=== PATIENT | male | born 1970 | race Caucasian/White ===

== ENCOUNTER 2017-01-16 00:44 | Emergency (ER) | payer OTHER ==
[~2017-01-16] VITALS: Ht 182.9 cm; Wt 90.9 kg
[2017-01-16 00:54] VITALS: BP 144/97; PULSE 103; RESP 18; O2SAT 99
--- NOTE | 2017-01-16 00:59 | ED.REPORT ---
HPI-Extremity Problem Lower Date of Service Jan 16, 2017 ED Provider: Dr. Min Wharton MD A 46 year old male with no pertinent medical history present to the ED with right leg swelling and pain that became increasingly worse this morning. The patient reportedly had a GLF onto a bed of rocks 2 weeks ago that resulted in a small laceration to the right anterior guy. Since the fall, the right leg has become increasingly red, swollen and painful. Recent associated symptoms also include a subjective fever and chills. Patient admits to self-medicated with 1500mg of amoxicillin this afternoon. He denies history of MRSA. Nursing Notes Stated Complaint: POSS BLOOD CLOT R LEG Chief Complaint: Extremity Trauma Nursing Notes Reviewed: Yes Allergies: Coded Allergies: No Known Allergies (Unverified , 01/16/17) Scheduled Cephalexin (Keflex) 500 Mg Capsule 500 MG PO QID General Time Seen by MD: 00:58 Chief Complaint Leg injury right Hx Obtained From: Patient Arrived By: Walk-in Onset Occurred: 9 - 12 hours ago Symptom Duration: Since onset Caused by: Accidental, Fall on ground Location: : Leg right Quality: Painful Severity: Current: Moderate Severity: Maximum: Moderate Associated with: Reports: Fever (subjective), Swelling Pertinent Negative: Pt denies other symptoms Recent Healthcare: No recent doctor visit, No recent hospitalization Past Medical History Past Medical History None reported. Past Surgical History None reported. Smoking History Unknown if Ever Smoker Social History Other Social History: Good social support, Local resident Ambulatory Status Independent Review of Systems + right leg erythema Constitutional: Reports: Chills, Fever (subjective) Musculoskeletal: Reports: Extremity pain (R leg), Extremity swelling (R leg) Complete sys rev & neg: except as marked. Physical Exam Initial Vital Signs Vital Signs (First) Date Time Temp Pulse Resp B/P Pulse Ox O2 Delivery O2 Flow Rate FiO2 01/16/17 00:54 37.3 103 18 144/97 99 Room Air Initial VS: Reviewed Head / Eyes: Atraumatic, Normocephalic, PERRL Neck: Supple, Non-tender, Full range of motion Upper Extremities: Vascular intact, Neuro intact, No swelling, No tenderness Neurologic: Alert, Oriented, Nonfocal Psychiatric: Mood/affect normal, Behavior normal, Normal thought content Lower Extremity / Pelvis / MS: Atraumatic, Neurologic intact, Vascular intact Right Leg / Calf: Positive: Erythema present, Swelling present..., Tenderness present... (mid anterior tibia) Ankle / Foot: Atraumatic, Neurologic intact, Vascular intact General/Constitutional: Awake, Alert, No acute distress Respiratory / Chest: Atraumatic, Breath sounds NL, Breath sounds = bilat, No respiratory distress Cardiovascular: Heart rate NL, Regular rhythm, Heart sounds NL Skin: Atraumatic, Warm, Dry Abscess #1 Location/Condition: Positive: Erythema surrounding, Location (Right anterior tibia), Purulent discharge Adenopathy: Positive: Inguinal adenopathy R Interpretation & Diagnostics Lab Results Interpretation Result Diagram: 01/16/17 0143 01/16/17 0143 Test 01/16/17 01:43 White Blood Count 15.8th/mm3 (3.8-10.1) Red Blood Count 4.50mil/mm3 (4.40-5.80) Hemoglobin 14.6g/dL (13.8-17.2) Hematocrit 40.5% (41.0-50.0) Mean Corpuscular Volume 90.0fL (81-100) Mean Corpuscular Hemoglobin 32.4pg (27.0-35.0) Mean Corpuscular Hemoglobin Concent 36.0% (32.0-37.0) Red Cell Distribution Width 11.8% (12.3-15.4) Platelet Count 242bil/L (150-400) Neutrophils (%) (Auto) 81% (40-74) Lymphocytes (%) (Auto) 5% (14-46) Monocytes (%) (Auto) 9% (4-12) Eosinophils (%) (Auto) 0% (0-5) Basophils (%) (Auto) 0% (0-3) Band Neutrophils % 4% (1-5) Sodium Level 129mEq/L (134-144) Potassium Level 3.6mEq/L (3.5-5.2) Chloride Level 90mEq/L (97-108) Carbon Dioxide Level 22mmol/L (18-29) Blood Urea Nitrogen 7mg/dL (6-24) Creatinine 0.68mg/dL (0.76-1.27) Estimat Glomerular Filtration Rate 134mL/min (>59) Glucose Level 136mg/dL (60-99) Lactic Acid Level 1.8mmol/L (0.4-2.0) Calcium Level 9.3mg/dL (8.5-10.1) Magnesium Level 1.8mg/dL (1.6-2.6) Total Bilirubin 1.3mg/dL (0.0-1.2) Aspartate Amino Transf (AST/SGOT) 18U/L (0-50) Alanine Aminotransferase (ALT/SGPT) 21U/L (0-44) Alkaline Phosphatase 44U/L (25-150) Total Protein 7.5g/dL (6.4-8.4) Albumin 4.2g/dL (3.4-5.0) Procedures Incision & Drainage Abscess Time: :55 Procedure Performed by: ED physician Consent / Setup / Site Prep: Consent from patient, Time-out performed, Hand hygiene observed, Stand sterile technique, Standard surgical scrub, Sterile drapes applied Location of Abscess: Right anterior guy Skin Preparation Agent: Shurclens Local Anesthesia: Lidocaine w epi 1% Incised Abscess with Scalpel: #11 Pus Drained: Medium (2-3mL), Purulent discharge Irrigation: Yes, Copious Post-Procedure / Complications: Packing placed, Drain placed, Culture obtained, Gram stain ordered, Dressing applied, No complications, Condition improved, Tolerated procedure well, Patient stable Re-Eval/Medical Decision Med Decision/Clinical Course 46-year-old presents with a abscess on his guy two weeks after a minor injury. Ultrasound demonstrates fluid-filled cavity treated this was incised and drained and packed. Discharged home with Keflex. Culture situation unfortunately contaminated with self-administered amoxicillin prior to coming here. Warned against doing that in the future. Re-Evaluation/Progress #1: Time of Eval: :45 Re-Evaluation/Progress Note: Bedside US performed. Plan to incise and drain the affected area. Patient understands and agrees with the current treatment plan. Re-Evaluation/Progress #2: Time of Eval: :55 Patient Status: Condition improved Re-Evaluation/Progress Note: I&D is performed. The patient tolerates the procedure well without complication. All questions are addressed. Counseled Regarding: Diagnosis, Lab results, Need for follow-up, When/why to return to ED Discharge & Departure Impression: Primary Impression: Abscess of lower extremity Additional Impression: Cellulitis and abscess of leg, except foot Disposition: Home Discharge Condition All VS Reviewed: Yes Condition: Improved Patient Instructions: Abscess (ED), Abscess Incision and Drainage (DC) Additional Instructions: In general, never take antibiotics left over from a prior prescription. That just muddies the jordan and makes a proper diagnosis impossible. Soak the area with a hot washcloth through four times a day. He may shower or bathe as normal. On Monday morning, soak the area and remove the drain. Continue soaks for the next four or five days until the area heals. Keflex four times daily Follow up with your doctor in the office Return here for any immediate problems over the weekend. Ibuprofen or Aleve as needed for pain. Referrals: Lilian Payne MD Scribe Attestation Portions of this note were transcribed by Alise Dominguez. I, Dr. Wharton, personally performed the history, physical exam and medical decision-making; I reviewed and confirmed the accuracy of the information in the transcribed note. Signed by: Alise Dominguez, 01/16/17. Min Wharton MD Jan 16, 2017 00:59 ALISE DOMINGUEZ Jan 16, 2017 01:08
[2017-01-16] MEDS ORDERED: 0.9% Sodium Chloride 1,000 ML IV ONE (01:14)
[2017-01-16] MEDS ORDERED: CeFAZolin Inj 2 GM in IV Premix 1 EACH IV ONE (01:45)
[2017-01-16 01:47] LABS: Mean Corpuscular Hemoglobin 32.4 pg (27.0-35.0)
[2017-01-16 01:48] LABS: Platelet Count 242 bil/L (150-400)
[2017-01-16 02:05] LABS: BASOPHILS % (AUTO) 0 % (0-3); EOSINOPHILS % (AUTO) 0 % (0-5); MONOCYTES % (AUTO) 9 % (4-12); NEUTROPHILS % (AUTO) 81 % (40-74)
[2017-01-16 02:06] LABS: Magnesium 1.8 mg/dL (1.6-2.6)
[2017-01-16] MEDS ORDERED: CEPH-512 PO (02:24)
[2017-01-16 02:53] VITALS: BP 149/97; PULSE 98; RESP 16; O2SAT 99
== END 2017-01-16 02:51 | disposition home or self-care (01) ==
LOC: SED 00:44
DX: L02.415 Cutaneous abscess of right lower limb (principal); L03.115 Cellulitis of right lower limb; W01.198A Fall on same level from slipping, tripping and stumbling with subsequent striking against other object, initial encounter; Y93.9 Activity, unspecified; Y92.009 Unspecified place in unspecified non-institutional (private) residence as the place of occurrence of the external cause; Y99.9 Unspecified external cause status
CPT/HCPCS: 10061; 36415; 80053; 83605; 83735; 85025; 87040; 87070; 87147; 87205; 96361; 96365; 96375; 99285; J0690; J1885; J7030